=== PATIENT | female | born 1950 | race Caucasian/White ===

== ENCOUNTER 2017-09-10 15:27 | Outpatient (CLI) | payer OTHER, MEDICARE | END 2017-09-10 15:28 | disposition home or self-care (01) | LOC: BICMAMMO 15:27 | PROVIDERS: ATTEND Family Medicine | DX: Z12.31 Encounter for screening mammogram for malignant neoplasm of breast (principal); Z78.0 Asymptomatic menopausal state; Z80.3 Family history of malignant neoplasm of breast | CPT/HCPCS: 77063; 77067; 77080 ==

== ENCOUNTER 2019-03-19 17:06 | Emergency (ER) | payer MEDICARE, OTHER ==
[~2019-03-19 17:06] MED LIST: ISOVUE-370 76%-LOCM 1 ML ONE
[2019-03-19 17:55] LABS: #Basophils 0.1 thou/uL (0.0-0.2); #Eosinphils 0.1 thou/uL (0.0-0.7); #Lymphocytes 2.6 thou/uL (1.20-3.40); #Monocytes 0.5 thou/uL (0.11-0.59); #Neutrophils 3.5 thou/uL (1.40-6.50); %Basophils 0.9 % (0.0-1.0); %Eosinophils 2.2 % (0.0-10.0); %Lymphocytes 38.4 % (21.0-51.0); %Monocytes 7.2 % (0.0-10.0); %Neutrophils 51.4 % (42.0-75.0); Hemoglobin 13.5 g/dL (12.0-16.0); Mean Corpuscular HGB CONC 33.8 g/dL (32.0-36.0); Mean Corpuscular Volume 88.7 fL (78.0-98.0); Mean Platelet Volume 7.9 fL (7.4-10.4); Platelet Count 229 thou/uL (130-400); RBC Distribution Width 12.2 % (11.5-14.5); White Blood Cell (WBC) Count 6.8 thou/uL (4.8-10.8)
[2019-03-19 18:31] LABS: ALT (SGPT) 14 U/L (8-55); AST (SGOT) 15 U/L (5-34); Albumin 3.6 g/dL (3.4-4.8); Alkaline Phosphatase 67 U/L (40-150); Anion Gap 14 mmol/L (10-20); BUN (Urea Nitrogen) 17 mg/dL (9.8-20.1); Bilirubin, Total 0.3 mg/dL (0.2-1.2); CK (CPK) 48 U/L (29-168); Calc. Creatinine Clearance 0 mL/min (70-130); Calcium 8.9 mg/dL (7.8-10.44); Carbon Dioxide 24 mmol/L (23-31); Chloride 106 mmol/L (98-107); Estimated GFR-MDRD 69; Globulin 2.9 g/dL (2.4-3.5); Glucose 221 mg/dL (80-115); Lipase 20 U/L (8-78); Potassium 3.9 mmol/L (3.5-5.1); Protein, Total 6.5 g/dL (6.0-8.3); Sodium 140 mmol/L (136-145)
--- NOTE | 2019-03-19 19:18 | CT ---
CT ARTERIOGRAM CHEST WITH IV CONTRAST AND 3D IMAGIN03/19/19 HISTORY: Chest pain. Dyspnea. FINDINGS: There is good contrast opacification of the pulmonary arteries and thoracic aorta with bovine origin of the great vessels at the aortic arch. Nonenlarged, nonspecific lymph nodes throughout the mediasti num. Calcified granulomata are consistent with healed granulomatous disease. No pleural fluid, lobar consolidation, or pneumothorax. The inferior most images show large dystrophic calcification associat ed with the anterior cortex of the left kidney. Gallbladder is surgically absent. IMPRESSION: No CT evidence of pulmonary embolus. POS: BST
== END 2019-03-19 20:02 | disposition home or self-care (01) ==
LOC: ERS 17:06
DX: M54.9 Dorsalgia, unspecified (principal); E11.9 Type 2 diabetes mellitus without complications; I10 Essential (primary) hypertension; Z79.899 Other long term (current) drug therapy; Z79.84 Long term (current) use of oral hypoglycemic drugs
CPT/HCPCS: 36415; 71275; 80053; 82550; 83690; 83880; 84484; 85025; 85379; 93005; Q9966

== ENCOUNTER 2019-09-23 11:02 | Outpatient (CLI) | payer MEDICARE, OTHER ==
--- NOTE | 2019-09-23 12:05 | RAD ---
RIGHT HAND 3 VIEWS: Date: 09/23/2019 HISTORY: Open bite of hand by cat at base of right thumb. Hand looks infected. FINDINGS: No fracture, dislocation, bony destruction, or periosteal reaction is seen. No soft tissue air is sheyla ntified. IMPRESSION: No radiographic evidence of osteomyelitis. POS: TPC
== END 2019-09-23 11:03 | disposition home or self-care (01) ==
LOC: BICRAD 11:02
PROVIDERS: ATTEND Physician Assistant
DX: S61.451A Open bite of right hand, initial encounter (principal)
CPT/HCPCS: 87070; 87205

== ENCOUNTER 2019-09-30 11:51 | Outpatient (CLI) | payer MEDICARE, OTHER ==
--- NOTE | 2019-09-30 15:32 | MMO ---
Bilateral MAMMO Bilat Screen [facility]. CLINICAL HISTORY: Patient is 69 years old and is seen for screening. The patient has the following family history of breast cancer: sister, at age 64, inflammatory carcinoma. The patient has no personal history of cancer. VIEWS: The views performed were: bilateral craniocaudal with tomosynthesis and bilateral mediolateral oblique with tomosynthesis. FILMS COMPARED: The present examination has been compared to prior imaging studies performed at [facility] on 05/21/2013 and 09/10/2017, and at [facility] on 01/08/2003 and 04/13/2009. This study has been interpreted with the assistance of computer-aided detection. MAMMOGRAM FINDINGS: There are scattered fibroglandular densities. Finding 1: There are stable benign appearing calcifications seen in both breasts. Finding 2: There are multiple stable focal asymmetries seen in both breasts. There are no suspicious masses, suspicious calcifications, or new areas of architectural distortion. IMPRESSION: THERE IS NO MAMMOGRAPHIC EVIDENCE OF MALIGNANCY. A ROUTINE FOLLOW-UP MAMMOGRAM IN 1 YEAR IS RECOMMENDED. THE RESULTS OF THIS EXAM WERE SENT TO THE PATIENT. ACR BI-RADS Category 2 - Benign finding MAMMOGRAPHY NOTE: 1. A negative mammogram report should not delay a biopsy if a dominant of clinically suspicious mass is present. 2. Approximately 10% to 15% of breast cancers are not detected by mammography. 3. Adenosis and dense breasts may obscure an underlying neoplasm. Reported by: KASSIE RAINEY MD Electonically Signed: [id number]
== END 2019-09-30 11:52 | disposition home or self-care (01) ==
LOC: BICMAMMO 11:51
PROVIDERS: ATTEND Family Medicine
DX: Z12.31 Encounter for screening mammogram for malignant neoplasm of breast (principal); Z80.3 Family history of malignant neoplasm of breast
CPT/HCPCS: 77063; 77067

== ENCOUNTER 2021-08-18 00:55 | Day surgery (SDC) | payer MEDICARE, OTHER ==
[2021-08-18] MEDS ORDERED: Promethazine HCl 25 MG/ML VIAL ONE (00:58)
[2021-08-18] MEDS ORDERED: Fentanyl 100 MCG/2 ML VIAL ONE (01:54)
[2021-08-18] MEDS ORDERED: Dexamethasone 20 MG/5 ML VIAL ONE (01:56)
[2021-08-18] MEDS ORDERED: Rocuronium Bromide 10 MG/ML (10ML VIAL) ONE (01:56)
[2021-08-18] MEDS ORDERED: Ondansetron PF 4 MG/2 ML Vial ONE (01:56)
[2021-08-18] MEDS ORDERED: PROPOFOL 200 MG/20 ML VIAL ONE (01:56)
[2021-08-18] MEDS ORDERED: Lidocaine 1% PF 5 ML VIAL ONE (01:56)
[2021-08-18] MEDS ORDERED: HYDROcodone/Acetaminophen 5/325 mg Tablet ONE (03:29)
== END 2021-08-18 04:42 | disposition home or self-care (01) ==
LOC: SDC/OP 00:55
PROVIDERS: ATTEND Internal Medicine
PROC: 0DC38ZZ Extirpation of Matter from Lower Esophagus, Via Natural or Artificial Opening Endoscopic (ICD-10-PCS; principal; 2021-08-18)
PROC: 0DB28ZX Excision of Middle Esophagus, Via Natural or Artificial Opening Endoscopic, Diagnostic (ICD-10-PCS; 2021-08-18)
DX: T18.128A Food in esophagus causing other injury, initial encounter (principal); K20.80 Other esophagitis without bleeding; R13.19 Other dysphagia; I10 Essential (primary) hypertension; E11.9 Type 2 diabetes mellitus without complications; E89.6 Postprocedural adrenocortical (-medullary) hypofunction; Z79.84 Long term (current) use of oral hypoglycemic drugs; Z79.899 Other long term (current) drug therapy; Z88.1 Allergy status to other antibiotic agents; Z91.018 Allergy to other foods; Z91.040 Latex allergy status
CPT/HCPCS: 88305; J1100; J2405; J2550; J2704; J3010

== ENCOUNTER 2021-09-07 12:53 | Outpatient (CLI) | payer MEDICARE, OTHER | END 2021-09-07 12:54 | disposition home or self-care (01) | LOC: BICMAMMO 12:53 | PROVIDERS: ATTEND Family Medicine | DX: Z12.31 Encounter for screening mammogram for malignant neoplasm of breast (principal); Z13.820 Encounter for screening for osteoporosis; Z78.0 Asymptomatic menopausal state; M85.89 Other specified disorders of bone density and structure, multiple sites; Z80.3 Family history of malignant neoplasm of breast | CPT/HCPCS: 77063; 77067; 77080 ==

== ENCOUNTER 2024-05-01 12:51 | Outpatient (CLI) | payer MEDICARE, OTHER | END 2024-05-01 12:52 | disposition home or self-care (01) | LOC: BICMAMMO 12:51 | PROVIDERS: ATTEND Family Medicine | DX: Z12.31 Encounter for screening mammogram for malignant neoplasm of breast (principal); M85.89 Other specified disorders of bone density and structure, multiple sites; Z78.0 Asymptomatic menopausal state; Z80.3 Family history of malignant neoplasm of breast | CPT/HCPCS: 77063; 77067; 77080 ==

== ENCOUNTER 2025-05-05 11:40 | Outpatient (CLI) | payer MEDICARE | END 2025-05-05 11:41 | disposition home or self-care (01) | LOC: BICMAMMO 11:40 | PROVIDERS: ATTEND Family Medicine | DX: Z12.31 Encounter for screening mammogram for malignant neoplasm of breast (principal) | CPT/HCPCS: 77063; 77067 ==